=== PATIENT | male | born 1990 | race African-American/Black ===

== ENCOUNTER 2021-01-26 01:09 | Emergency (ER) | payer BC ==
[~2021-01-26] VITALS: Ht 180.3 cm; Wt 109.0 kg
[2021-01-26] MEDS ORDERED: DEXAMETHASONE 4MG TABLET PO ONE (02:00)
[2021-01-26] MEDS ORDERED: ONDANSETRON HCL 4MG/2ML INJ IV ONE (02:00)
[2021-01-26] MEDS ORDERED: SODIUM CHLORIDE 0.9% 1,000 ML IV ONE (02:00)
[2021-01-26] MEDS ORDERED: ONDA4TAB5 MT (04:13)
[2021-01-26 04:20] VITALS: BP 151/98
== END 2021-01-26 04:26 | disposition home or self-care (01) ==
LOC: ER 01:09
DX: J02.9 Acute pharyngitis, unspecified (principal); J45.909 Unspecified asthma, uncomplicated; I10 Essential (primary) hypertension; Z98.890 Other specified postprocedural states
CPT/HCPCS: 96361; 96374; 99284; J2405; J7030; J8540